=== PATIENT | female | born 2000 | race Caucasian/White ===

== ENCOUNTER 2024-11-25 09:52 | Inpatient (IN) | payer SELFPAY | END 2024-11-25 15:24 | disposition home or self-care (01) | DRG 392 | DX: R10.9 Unspecified abdominal pain (principal) | CPT/HCPCS: 99221; G0378 ==

== ENCOUNTER 2024-12-06 08:27 | Inpatient (IN) | payer SELFPAY | END 2024-12-06 14:17 | disposition home or self-care (01) | DRG 392 | DX: R10.9 Unspecified abdominal pain (principal) | CPT/HCPCS: 99221; G0378 ==